=== PATIENT | male | born 1995 | race African-American/Black ===

== ENCOUNTER 2018-03-10 09:22 | Emergency (ER) | payer MEDICAID ==
[~2018-03-10] VITALS: Ht 182.9 cm; Wt 82.0 kg
[~2018-03-10 09:22] MED LIST: ALBUTEROL; CLONIDINE; PREDNISONE
[2018-03-10] MEDS ORDERED: KETOROLAC 30MG/ML VIAL IV STA (10:15)
[2018-03-10] MEDS ORDERED: ONDANSETRON HCL 4MG/2ML VIAL IV STA (10:15)
[2018-03-10] MEDS ORDERED: FAMOTIDINE 20MG/2ML VIAL IV STA (10:15)
[2018-03-10] MEDS ORDERED: SODIUM CHLORIDE 0.9% 1,000 ML IV ONE (10:15)
[2018-03-10 11:41] LABS: BASOPHILS % 0.4 % (0.0-2.0); EOSINOPHILS % 0.2 % (0.0-5.0); HEMATOCRIT. 40.9 % (42.0-52.0); HEMOGLOBIN. 14.1 g/dL (14.0-18.0); MEAN CORPUSCULAR HEMOGLOBIN 31.2 pg (28.0-32.0); MEAN CORPUSCULAR VOLUME 90.7 fL (80.0-94.0); MEAN PLATELET VOLUME 9.1 fl (7.4-10.4); MONOCYTES % 8.9 % (2.0-8.0); NEUTROPHILS % 67.5 % (40.0-76.0); PLATELET 160 x1000/uL (130-400); RED BLOOD CELL COUNT 4.51 mill/uL (4.7-6.1); RED CELL DISTRIBUTION WIDTH 14.3 % (11.6-14.6)
[2018-03-10 11:45] LABS: CHLORIDE 106 mEq/L (98-107)
[2018-03-10 11:49] LABS: ETHANOL BLOOD < 10 mg/dL
[2018-03-10 11:59] VITALS: BP 148/87
[2018-03-10 12:51] LABS: CLARITY URINE CLEAR (CLEAR); COLOR URINE YELLOW (YELLOW); KETONES URINE NEGATIVE (NEGATIVE); LEUKOCYTE ESTERASE URINE NEGATIVE (NEGATIVE); NITRITE URINE NEGATIVE (NEGATIVE); OCCULT BLOOD URINE NEGATIVE (NEGATIVE); PH URINE >=9.0 (4.5-8.0); PROTEIN URINE TRACE (NEGATIVE); SPECIFIC GRAVITY URINE 1.021 (1.005-1.030)
== END 2018-03-10 13:46 | disposition home or self-care (01) ==
LOC: ER 09:22
DX: R10.13 Epigastric pain (principal); R80.9 Proteinuria, unspecified; F12.10 Cannabis abuse, uncomplicated
CPT/HCPCS: 36415; 76705; 80053; 81003; 83690; 85025; 96361; 96374; 96375; 99285; G0482; J1885; J2405; J3490; J7030; Z7610

== ENCOUNTER 2019-08-28 18:11 | Emergency (ER) | payer MEDICAID ==
[~2019-08-28] VITALS: Ht 185.4 cm; Wt 91.0 kg
[2019-08-28] MEDS ORDERED: KETOROLAC 30MG/ML VIAL IM STA (18:58)
[2019-08-28] MEDS ORDERED: ONDANSETRON 4MG ODT PO ONE (19:15)
[2019-08-28 19:30] LABS: BASOPHILS % 1.3 % (0.0-2.0); EOSINOPHILS % 0.7 % (0.0-5.0); HEMATOCRIT. 45.7 % (42.0-52.0); HEMOGLOBIN. 15.8 g/dL (14.0-18.0); LYMPHOCYTES % 34.8 % (20.0-50.0); MEAN CORPUSCULAR HEMOGLOBIN 32.4 pg (28.0-32.0); MEAN CORPUSCULAR VOLUME 93.7 fL (80.0-94.0); MONOCYTES % 9.7 % (2.0-8.0); NEUTROPHILS % 53.5 % (40.0-76.0); PLATELET 200 x1000/uL (130-400); RED BLOOD CELL COUNT 4.88 mill/uL (4.7-6.1); RED CELL DISTRIBUTION WIDTH 14.2 % (11.6-14.6)
[2019-08-28 19:36] LABS: CHLORIDE 102 mEq/L (98-107)
[2019-08-28 20:28] VITALS: BP 129/80
== END 2019-08-28 20:34 | disposition home or self-care (01) ==
LOC: ER 18:18
DX: R07.9 Chest pain, unspecified (principal); F12.10 Cannabis abuse, uncomplicated; J45.909 Unspecified asthma, uncomplicated; Z87.891 Personal history of nicotine dependence
CPT/HCPCS: 36415; 71045; 80053; 84484; 85025; 96372; 99284; J1885; Q0162

== ENCOUNTER 2024-08-27 09:23 | Emergency (ER) | payer MEDICAID ==
[~2024-08-27] VITALS: Ht 182.9 cm; Wt 113.3 kg
[2024-08-27 09:28] VITALS: O2SAT 99
[2024-08-27 09:43] VITALS: BP 154/109; PULSE 70; RESP 16; TEMP 98; O2SAT 99
[2024-08-27] MEDS: ACETAMINOPHEN 325MG TABLET PO ONE (11:43)
[2024-08-27] MEDS: CYCLOBENZAPRINE 10MG TABLET PO ONE (11:43)
[2024-08-27] MEDS: KETOROLAC 30MG/ML VIAL IM ONE (11:43)
[2024-08-27] MEDS ORDERED: ACET-2708 MT (12:02)
[2024-08-27] MEDS ORDERED: NAPR-679 MT (12:02)
[2024-08-27] MEDS ORDERED: CYCL5TAB3 MT (12:05)
== END 2024-08-27 13:20 | disposition home or self-care (01) ==
LOC: ER 09:23
DX: S16.1XXA Strain of muscle, fascia and tendon at neck level, initial encounter (principal); S39.012A Strain of muscle, fascia and tendon of lower back, initial encounter; F12.10 Cannabis abuse, uncomplicated; J45.909 Unspecified asthma, uncomplicated; Z91.013 Allergy to seafood; Z79.899 Other long term (current) drug therapy; V43.62XA Car passenger injured in collision with other type car in traffic accident, initial encounter; X58.XXXA Exposure to other specified factors, initial encounter; Y93.89 Activity, other specified; Y92.89 Other specified places as the place of occurrence of the external cause; Y99.8 Other external cause status
CPT/HCPCS: 99283; 72100; 96372; J1885

== ENCOUNTER 2025-04-02 17:04 | Emergency (ER) | payer MEDICAID ==
[~2025-04-02] VITALS: Ht 182.9 cm; Wt 100.0 kg
[~2025-04-02 17:04] MED LIST changes: +ACET-2708 MT; +CYCL5TAB3 MT; +NAPR-679 MT
[2025-04-02 17:08] VITALS: O2SAT 100
[2025-04-02 17:40] VITALS: TEMP 36.6
[2025-04-02] MEDS: METHYLPREDNISOLONE SOD SUCC 125MG/2ML (ACT-O-VIAL) IV ONE (17:54)
[2025-04-02] MEDS: FAMOTIDINE 20MG/2ML VIAL IV ONE (17:54)
[2025-04-02 20:02] VITALS: BP 132/87; PULSE 77; RESP 19; O2SAT 99
[2025-04-02] MEDS ORDERED: DIPH25CA83 MT (20:21)
[2025-04-02] MEDS ORDERED: EPIN0.3P3 IM (20:21)
== END 2025-04-02 20:44 | disposition home or self-care (01) ==
LOC: ER 17:04
DX: T78.02XA Anaphylactic reaction due to shellfish (crustaceans), initial encounter (principal); J45.909 Unspecified asthma, uncomplicated; Z79.1 Long term (current) use of non-steroidal anti-inflammatories (NSAID); F10.90 Alcohol use, unspecified, uncomplicated; F12.90 Cannabis use, unspecified, uncomplicated; Z79.899 Other long term (current) drug therapy; Y92.89 Other specified places as the place of occurrence of the external cause
CPT/HCPCS: 96374; 96375; 99284; J1308; J2919; Z7610 ×2